=== PATIENT | male | born 1945 | race Caucasian/White ===

== ENCOUNTER 2017-12-11 00:15 | Day surgery (SDC) | payer MEDICARE ==
[~2017-12-11] VITALS: Ht 185.4 cm; Wt 93.0 kg
[~2017-12-11 00:15] MED LIST: FINA5TAB67 PO; LEVO-3 PO; TAMS0.4C70 PO; TRAM-420 PO
[2017-12-11] MEDS ORDERED: fentaNYL CITR 250 MCG/5 ML AMP ONE (11:00)
[2017-12-11] MEDS ORDERED: ROCURONIUM BROM 10 MG/ML 10 ML ONE (11:00)
[2017-12-11] MEDS ORDERED: PROPOFOL EMUL(*) 10MG/ML 20 ML 20 ML ONE (11:00)
[2017-12-11] MEDS ORDERED: SUGAMMADEX SOD 200 MG/2 ML SDV ONE ×2 (11:00→14:50)
[2017-12-11] MEDS ORDERED: LIDOCAINE MPF 1% 5 ML VIAL ONE (11:00)
[2017-12-11] MEDS ORDERED: DEXAMETHASONE SOD 4 MG/ML VIAL ONE (11:00)
[2017-12-11] MEDS ORDERED: ONDANSETRON 4 MG/2 ML VIAL ONE (11:00)
[2017-12-11] MEDS ORDERED: KETAMINE HCL 200 MG/20 ML MDV ONE (11:04)
[2017-12-11 12:17] VITALS: BP 123/82
[2017-12-11 12:26] LABS: PLATELET COUNT, AUTOMATED 399 K/uL (150-450)
[2017-12-11] MEDS ORDERED: FAMOTIDINE 20 MG TAB PO ONE (13:00)
[2017-12-11] MEDS ORDERED: NORMOSOL R SOLN(*) 1000 ML BAG 1,000 ML IV PRN (13:00)
[2017-12-11] MEDS ORDERED: ceFAZolin(*) 2GM/D5W 50ML 50 ML IVPB ONE (13:00)
[2017-12-11] MEDS ORDERED: MIDAZOLAM 2 MG/2 ML VIAL IVP PRN (13:00)
[2017-12-11] MEDS ORDERED: LIDOCAINE/SOD BICARB 8.4% SYR ID ONE (13:00)
[2017-12-11] MEDS ORDERED: LABETALOL HCL 100 MG/20ML VIAL ONE (14:00)
[2017-12-11] MEDS ORDERED: fentaNYL CITR 100 MCG/2 ML AMP ONE ×2 (15:24→15:50)
[2017-12-11] MEDS ORDERED: KETOROLAC 30 MG/ML VIAL ONE (15:26)
--- NOTE | 2017-12-11 15:33 | OPERATIVE REPORT 1 ---
EVENT DATE: December 11, 2017 SURGEON: Deo Garcia MD ANESTHESIOLOGIST: Lars Holbrook MD ANESTHESIA: General endotracheal anesthesia. TECHNICAL SUPPORT DIRECTOR: TROY Noland PREOPERATIVE DIAGNOSIS L2-L3 spinal stenosis. POSTOPERATIVE DIAGNOSIS L2-L3 spinal stenosis. PROCEDURE PERFORMED L2-L3 laminectomy. INTRAVENOUS FLUIDS 1300 mL ESTIMATED BLOOD LOSS 50 mL IMPLANTS USED None. SPECIMENS None. DRAINS None. COMPLICATIONS None. DISPOSITION Post-anesthesia care unit. INDICATIONS FOR SURGERY Mr. Pablo is a 72-year-old male who presented to my clinic with the chief complaint of bilateral lower extremity radiating pain, numbness, and tingling in an L3 distribution. He had failed physical therapy, activity modifications, and medications. In addition to the pain, numbness, and tingling, he noted decreased walking tolerance secondary to a feeling of heaviness and tiredness in his legs. Physical examination was normal with normal strength and sensation , but his MRI showed [id number] bilateral lateral recess stenosis at the L3-L4 levels secondary to broad-based disc bulging, facet hypertrophy, and ligamentum flavum thickening. Secondary to failure of nonsurgical treatment and ongoing pain, Mr. Pablo was offered and elected to undergo L2-L3 laminectomy. Prior to surgery, I explained in detail to the patient the possible risks of surgery. These included bleeding, infection, damage to surrounding structures, nerve root injury, spinal fluid leak, meningitis, persistent and/or worsening pain, need for further surgery, , blindness, sexual dysfunction, autonomic nervous system dysfunction, and other unforeseen medical and surgical complications. An understanding that spinal surgery is more predictive at improving extremity discomfort than axial spine pain was stressed. DESCRIPTION OF PROCEDURE On the day of surgery, the patient was met in the preoperative hold area, and all questions were answered. The operative site was identified and marked by myself. The patient was brought in good condition to the operating room, and after succumbing to anesthesia, was placed in the prone position on a Michele table. The skin was prepped, and a spinal needle was placed on the spinous process of L2. A lateral radiograph was obtained to confirm correct spinal level. The patient was then prepped and draped in the standard sterile orthopedic fashion, and an incision was made over the intended surgical levels. Sharp dissection was carried out down to the posterior elements, and the fascia was incised. Soft tissues were elevated off the posterior elements in a subperiosteal manner. Self-retaining retractor was placed. The entire lamina of L2 was exposed, as was the superior aspect of the lamina of L3. The L2 spinous process was removed with a Leksell rongeur, and the lamina was thinned in the middle again with a Leksell rongeur and a high-speed ramon. The canal was entered by using a Rico curette to undermine the superior insertion of the ligamentum flavum on the inferior aspect of the L2 lamina. A Braxton elevator was then used to separate the dura from any surrounding bony or soft tissue adhesions. A Kerrison 4 was used to perform the midline decompression. The Braxton elevator was again used to ensure that there was no adhesion between the dura and the soft tissues and bone in the lateral recesses. Bilateral lateral recess decompressions were performed using a combination of 3.0 and 4.0 Kerrison rongeurs. At the conclusion of the decompression, the traversing L3 root was freely mobile, and a Myers probe was used to check the lateral recesses as well as the L3 foramen for complete decompression. The decompression was found to be excellent. Meticulous hemostasis was obtained. The wound was irrigated with copious sterile saline solution. The wound was then closed in layers using interrupted sutures for the deep fascia, interrupted sutures for the subcutaneous tissue, and then a running subcuticular skin stitch. Sponge and needle counts were correct times two. POSTOPERATIVE CARE PLAN Mr. Pablo will likely be discharged home day of surgery. He will follow up with me in two weeks' time for wound check and examination. JAY
[2017-12-11] MEDS ORDERED: PROMETHAZINE 25 MG/ML 1 ML AMP ONE (15:39)
[2017-12-11] MEDS ORDERED: APAP/HYDROCODONE 325/5 TAB ONE (16:10)
[2017-12-11 16:30] VITALS: BP 127/79
[2017-12-11 16:42] VITALS: BP 118/73
[2017-12-11 16:44] VITALS: BP 103/62
--- NOTE | 2017-12-12 07:03 | RADIOLOGY IMAGING REPORT ---
FACILITY: [facility] - [place], [place] PATIENT NAME: Oneal Pablo : 1945 MR: [id number] V: [id number] EXAM DATE: ORDERING PHYSICIAN: LISA CARMICHAEL TECHNOLOGIST: Location: [facility] - [place] Patient: Oneal Pablo : 1945 Visit/Account:[id number] Date of Sevice: 12/11/2017 LUMBAR SPINE 1 VIEW HISTORY: L2-3 disc herniation. COMPARISON: Lumbar spine MR 10/30/2017. Prior lumbar spine x-rays 10/17/2017. TECHNIQUE: Crosstable lateral view of the lumbar spine. FINDINGS: There is a surgical instrument/needle overlying the spinous process of L2, at the level of the L2-3 disc interspace. There is 4 mm retrolisthesis of L2 compared to L3. Vertebral body heights a re maintained. IMPRESSION: 1. Surgical instrument/needle overlies the L2 spinous process at the level of the L2-3 disc space. Report Dictated By: Gifty Pierce at 12/12/2017 6:57 AM Report E-Signed By: Gifty Pierce at 12/12/2017 7:00 AM WSN:[id number]
== END 2017-12-11 16:30 | disposition home or self-care (01) ==
LOC: OR 00:15
PROVIDERS: ATTEND Orthopaedic Surgery
DX: M48.061 Spinal stenosis, lumbar region without neurogenic claudication (principal); E03.9 Hypothyroidism, unspecified
CPT/HCPCS: 36415; 63030; 72020; 85025; A9270; J1100; J1885; J2001; J2405; J2704; J3010; J3490; J0690

== ENCOUNTER → 2018-05-18 | Outpatient (CLI) | payer MEDICARE ==
--- NOTE | 2018-05-18 14:23 | RADIOLOGY IMAGING REPORT ---
[place] [facility] [place]: Oneal Pablo : 1945 MR: [id number] V: [id number] EXAM DATE: ORDERING PHYSICIAN: BARBARA SHAFER TECHNOLOGIST: Location: [facility] Patient: Oneal Pablo : 1945 Visit/Account:[id number] Date of Sevice: 05/18/2018 EXAMINATION: Right Lower Extremity Venous Ultrasound HISTORY: Right calf pain. TECHNIQUE: Ultrasound evaluation of the right lower extremity veins was performed with color and spe ctral Doppler and compression views. COMPARISON: None. FINDINGS: The right common femoral, femoral, proximal deep femoral, popliteal, and segmentally visualized deep calf veins are patent and compressible, without evidence of intraluminal thrombus. The visualized upper greater saphenous vein is patent. There is a fluid collection along the popliteal fossa which tracks inferiorly along the soft tissues of the right calf, with complex internal fluid. Overall this collection measures 2.4 x 5.0 cm in mayer sverse diameter extending craniocaudally over a length of up to 17 cm. IMPRESSION: 1. No evidence of DVT in the right leg. 2. Complex collection in the soft tissues of the popliteal fossa and tracking inferiorly along the ri ght calf, possibly related to a ruptured Carpenter's cyst. Report Dictated By: Jeremias Brumfield MD at 05/18/2018 2:08 PM Report E-Signed By: Jeremias Brumfield MD at 05/18/2018 2:19 PM WSN:[id number]
== END ==
LOC: US 12:52
PROVIDERS: ATTEND Orthopaedic Surgery
DX: M79.604 Pain in right leg (principal); R22.41 Localized swelling, mass and lump, right lower limb

== ENCOUNTER → 2018-08-08 | Outpatient (CLI) | payer MEDICARE ==
[2018-08-08 08:42] LABS: PLATELET COUNT, AUTOMATED 495 K/uL (150-450)
--- NOTE | 2018-08-08 08:43 | EKG ---
FACILITY: [facility] PATIENT NAME: HARJIT RAMIREZ : [id number] MR: [id number] V: [id number] EXAM DATE: ORDERING PHYSICIAN: DIAMANTE LOMAS TECHNOLOGIST: Test Reason : Pre-op Blood Pressure : / mmHG Vent. Rate : 081 BPM Atrial Rate : 081 BPM P-R Int : 148 ms QRS Dur : 078 ms QT Int : 372 ms P-R-T Axes : 067 -01 035 degrees QTc Int : 432 ms Normal sinus rhythm R wave progression consistent with an old ant/sep OH vs lead placement When compared with ECG of 27-APR-2017 11:02, Relatively unchanged Confirmed by JOSIAH ONTIVEROS ([id number]) on 08/08/2018 10:56:29 AM Referred By: Confirmed By:JOSIAH ONTIVEROS
== END ==
LOC: LAB 08:13
PROVIDERS: ATTEND Orthopaedic Surgery
DX: Z01.812 Encounter for preprocedural laboratory examination (principal); Z01.810 Encounter for preprocedural cardiovascular examination; E03.9 Hypothyroidism, unspecified; N40.0 Benign prostatic hyperplasia without lower urinary tract symptoms; M17.11 Unilateral primary osteoarthritis, right knee; F17.220 Nicotine dependence, chewing tobacco, uncomplicated
CPT/HCPCS: 36415; 81001; 82040; 82247; 82310; 82374; 82435; 82565; 82947; 84075; 84132; 84155; 84295; 84450; 84460; 84520; 85025; 93005

== ENCOUNTER 2018-09-04 01:12 | Observation (INO) | payer MEDICARE ==
[2018-09-03 14:22] LABS: INR 0.98
[~2018-09-04] VITALS: Ht 185.4 cm; Wt 88.5 kg
[2018-09-04] VITALS (17 sets, daily range): BP systolic 99–124; BP diastolic 64–77
[2018-09-04] MEDS ORDERED: NORMOSOL R SOLN(*) 1000 ML BAG 1,000 ML IV PRN (07:45)
[2018-09-04] MEDS ORDERED: ceFAZolin(*) 2GM/D5W 50ML 50 ML IVPB ONE (07:45)
[2018-09-04] MEDS ORDERED: LIDOCAINE/SOD BICARB 8.4% SYR ID ONE (07:45)
[2018-09-04] MEDS ORDERED: MIDAZOLAM 2 MG/2 ML VIAL IVP PRN (07:45)
[2018-09-04] MEDS ORDERED: ROPIVACAINE/EPI/CLONIDINE/KET 50 ML SYRINGE INJ ONE (07:45)
[2018-09-04] MEDS ORDERED: BACITRACIN 50000 UNIT/VIAL 100,000 UNIT in NS 0.9% 3000 ML IRRIGATION BAG 3,000 ML IR ONE (07:45)
[2018-09-04] MEDS ORDERED: TRANEXAMIC AC 1000 MG/10ML SDV 1,000 MG in DEXTROSE 5% 50 ML BAG 50 ML IV ONE (07:45)
[2018-09-04] MEDS ORDERED: PREGABALIN 75 MG CAPSULE PO ONE (07:45)
[2018-09-04] MEDS ORDERED: ACETAMINOPHEN 500 MG TAB PO ONE (07:45)
[2018-09-04] MEDS ORDERED: FAMOTIDINE 20 MG TAB PO ONE (07:45)
[2018-09-04] MEDS ORDERED: CELECOXIB 200 MG CAP PO ONE (07:45)
[2018-09-04] MEDS ORDERED: fentaNYL CITR 100 MCG/2 ML AMP ONE (08:18)
[2018-09-04] MEDS ORDERED: ONDANSETRON 4 MG/2 ML VIAL ONE (08:18)
[2018-09-04] MEDS ORDERED: PROPOFOL EMUL(*) 10MG/ML 20 ML 20 ML ONE (08:18)
[2018-09-04] MEDS ORDERED: DEXAMETHASONE SOD 4 MG/ML VIAL ONE (08:18)
[2018-09-04] MEDS ORDERED: LIDOCAINE MPF 1% 5 ML VIAL ONE (08:18)
[2018-09-04] MEDS ORDERED: KETAMINE HCL 200 MG/20 ML MDV ONE (08:22)
[2018-09-04] MEDS ORDERED: diphenhydrAMINE 25 MG CAP PO PRN (11:00)
[2018-09-04] MEDS ORDERED: ZOLPIDEM TARTRATE 5 MG TAB PO PRN (11:00)
[2018-09-04] MEDS ORDERED: PROMETHAZINE 25 MG/ML 1 ML AMP IVP PRN (11:00)
[2018-09-04] MEDS ORDERED: LR 1000 ML BAG 1000 ML IV PRN (11:00)
[2018-09-04] MEDS ORDERED: diphenhydrAMINE 50 MG/ML VIAL IVP PRN (11:00)
[2018-09-04] MEDS ORDERED: BISACODYL 10 MG SUPP PR PRN (11:00)
[2018-09-04] MEDS ORDERED: MAGNESIUM HYDROXIDE* 30ML UDCP PO PRN (11:00)
[2018-09-04] MEDS ORDERED: ONDANSETRON 4 MG/2 ML VIAL IVP PRN (11:00)
[2018-09-04] MEDS ORDERED: MAGNESIUM CITRATE 300 ML BTL PO PRN (11:00)
[2018-09-04] MEDS ORDERED: FLUSH 10 ML SYR IVP PRN (11:00)
[2018-09-04] MEDS ORDERED: HYDROmorphone HCL 2 MG/ML SDV IVP PRN (11:00)
--- NOTE | 2018-09-04 11:02 | OPERATIVE REPORT 1 ---
EVENT DATE: September 04, 2018 SURGEON: Zaki Lockhart MD ANESTHESIOLOGIST: Lars Holbrook MD ANESTHESIA: General plus spinal. JUICE MIXER: Guilherme Garcia PA-C PREOPERATIVE DIAGNOSIS Right medial compartment arthritis. POSTOPERATIVE DIAGNOSIS Right medial compartment arthritis. PROCEDURE PERFORMED Right unicompartmental knee arthroplasty on the medial side. FINDINGS The patient had a significant amount of arthritic changes on the medial side but no other major problems associated with the joint. ESTIMATED BLOOD LOSS Minimal. DRAINS None. COMPLICATIONS None. TOURNIQUET TIME 70 minutes. IMPLANTS USED [place] unicompartmental medial knee replacement with a C tibia, 3 poly and large femoral component. SPECIMENS None. INDICATIONS AND HISTORY This patient is a 73-year-old male who presented to my clinic for evaluation of right knee pain and irritation going on for some time. He continues to have pain and problems associated with the knee despite conservative management so he wanted to go ahead with a unicompartmental arthroplasty. We went over the risks and benefits associated with this. We talked about potential scopes and injections. Instead of that, he said he wanted to kind of be done with it so he wanted to go ahead with the unicompartmental knee arthroplasty so the risks and benefits were discussed with the patient and informed consent was obtained. He understands it may have to be converted to a total knee at a later time. DESCRIPTION OF PROCEDURE The patient was brought into the operating room. He and the procedure were both verified. He was placed supine on the operating table. He was then induced intubated and the right lower extremity was prepped and draped in the usual fashion and a time-out was observed, verifying the correct patient and procedure. After exsanguinating the limb and inflating the tourniquet, I then made an incision along the anterior aspect of the knee just on the medial side. It was taken through the skin and subcutaneous tissue and then I was able to go ahead with removal of the prepatellar bursa. I was then able to do a parapatellar approach by cutting along the patella and then going into the medial compartment. I then removed the patellar fat pad and also the front part of the medial meniscus and also I removed a little bit of the anterior aspect of the MCL just to release this area to gain exposure. Once I did this, I then measured the femoral component and this measured to a large so this is the component chosen. We then kept this guide in and then used the extramedullary guide in order to line up the tibia itself. I then put in the tibial cutting guide and pinned it in place and then cut without any major difficulty with the vertical cut first and the horizontal cut second. Once I did this, I was able to remove the wafer and then size it to right in between a C and a D. We removed some posterior osteophytes and this looked significantly better through this area and I removed the rest of the posterior meniscus. I then was able to put in the intramedullary guide through the femoral part. I then put in the 4 cutting guide for the distal femur. This was then followed by pinning in place and then cut and drilling the two holes, both anteriorly and through the mid portion of the femur. I then put in the 0 spigot and reamed over the top of the spigot without any difficulty. This was then followed by placement of the femoral trial guide. I then put in the tibial tray and then trialed the spacers and was found to have good spacing on the flexion but the extension gap was too tight x2 so, therefore, we then removed all the spacing and the instrumentation and then put in the #2 spigot, taking 2 off of this and then reaming up on this area. I then trialed the components again and had excellent stability associated with a 3 spacer so, therefore, this was the final spacing chosen. I then was able to turn attention to the femur again and remove the posterior osteophytes with the secondary cutting guide and then ream up over the top. I then turned attention to the proximal tibia, where I was able to then use the trial for the C, as the C looked better than the D, in order to use the toothbrush reamer in order to cut out the groove followed by the canal clearer and then I was able to put in the C without any major difficulty. We then trialed again and made sure there were no signs of problems. I then was able to determine the final components to be a large and then a C. We then cemented those in place without any difficulty and removed some of the posterior aspects and removed any loose cement that was gathered anywhere. I then put in the 4 spacer in order to get good pressure on the cement. Once I removed the 4 spacer, I then put in the 3 trial once again. This had excellent fixation so, therefore, we then took that out and put in the final 3 mm poly without any major difficulty. I was able to flex and extend the knee without any difficulty. We had varus and valgus stability so, therefore, I was able to flex and extend it without any issues so we left this in place, irrigated with copious amounts of saline, which we had throughout the case, injected the joint cocktail and then was able to close the medial parapatellar approach with an 0 Quill. This was then followed by 2-0 Vicryl in the little bit of fat layer and then a 2-0 Stratafix in the subcutaneous layer and subcuticular 4-0 running Monocryl with a bio-occlusive dressing over the top. The wound was then dressed with gauze, 4x4's and a large wrap from the foot all the way to the thigh. The tourniquet was let down just after 70 minutes. The patient was awakened, extubated and transferred to PACU in stable condition, where he will be admitted overnight. JAY
--- NOTE | 2018-09-04 11:52 | RADIOLOGY IMAGING REPORT ---
FACILITY: [facility] - [place] PATIENT NAME: Oneal Pablo : 1945 MR: [id number] V: [id number] EXAM DATE: ORDERING PHYSICIAN: DIAMANTE LOMAS TECHNOLOGIST: Location: [facility] - [place] Patient: Oneal Pablo : 1945 Visit/Account:[id number] Date of Sevice: 09/04/2018 KNEE LIMITED RIGHT HISTORY: S/P UNICOMPARTMENT OF THE KNEE REPLACED. CHECK PLACEMEN Additional history: None COMPARISON: Comparison made to preoperative exam 05/18/2018. FINDINGS: Patient status post arthroplasty of the medial compartment of the right knee with femoral and tibial component. Alignment unremarkable. Air in the joint is iatrogenic from recent surgery. IMPRESSION: Unicompartment right knee arthroplasty unremarkable in appearance. Report Dictated By: Gary Wood MD at 09/04/2018 11:44 AM Report E-Signed By: Gary Wood MD at 09/04/2018 11:47 AM WSN:[id number]
--- NOTE | 2018-09-04 12:14 | Hospitalist Consultation ---
History of Present Illness Requesting Physician Dr. Lockhart Reason for Consult Medical Management Chief Complaint s/p right knee unicompartmental replacement History of Present Illness He was admitted s/p right knee unicompartmental replacement. It is reported the surgery went well and without complication. History Problems: (1) Hypothyroidism Status: Chronic (2) BPH (benign prostatic hyperplasia) Status: Chronic Home Meds Reported Medications Finasteride (FINASTERIDE) 5 Mg Tablet, 5 MG PO QDAY 12/04/17 Tamsulosin Hcl (TAMSULOSIN HCL) 0.4 Mg Cap.er.24h, 0.4 MG PO QDAY, CAP 12/04/17 Levothyroxine Sodium (LEVOTHYROXINE SODIUM) 100 Mcg Tablet, 100 MCG PO QDAY, TAB 12/04/17 Discontinued Reported Medications Tramadol Hcl (TRAMADOL HCL) 50 Mg Tablet, 1 TAB PO TID, TAB 12/04/17 Allergies: Coded Allergies: No Known Drug Allergies (Unverified , 12/04/17) Patient History: FH: DE (myocardial infarction) FATHER Hx Smoking: No (1 CAN Q 4 DAYS) Caffeine Intake: Coffee Caffeine/Cups Per Day: 1-2 CPD Hx Alcohol Use: No Hx Substance Use Disorder: No Social Drug Use: Never Review of Systems All Systems Reviewed/Normal: Yes, Except as Noted Exam Vital Signs Vital Signs Date Time Temp Pulse Resp B/P (MAP) Pulse Ox O2 Delivery O2 Flow Rate FiO2 09/04/18 11:42 97.7 86 20 115/74 (88) 96 Nasal Cannula 2.0 General Appearance: Alert, Awake, No Acute Distress, Afebrile Neuro: No Gross deficits Cardiovascular: Regular Rate and Rhythm Respiratory: No Respiratory Distress, Clear to Auscultation GI: Abd Soft and Non-Tender Psych: Alert & Oriented X3, Appropriate Mood & Affect Assessment and Plan Problems: (1) S/P right unicompartmental knee replacement Status: Acute Assessment & Plan: He will be placed on Aspirin for DVT prophylaxis. He has no history of DVT or PE. (2) Hypothyroidism Status: Chronic Assessment & Plan: He is on chronic treatment with Levothyroxine. He requests he get medication at midnight. (3) BPH (benign prostatic hyperplasia) Status: Chronic Assessment & Plan: He is on chronic treatment with Flomax and Finasteride. Venous Thromboembolism Antithrombotics Is Pt On Any Antithrombotics?: No Exam Sepsis Risk: No Definite Risk KYM MOSQUEDAP Sep 04, 2018 12:14
--- NOTE | 2018-09-04 14:46 | NUR ---
Physical Therapy Impression PT eval complete. Pt completed bed mobility with SBA. CGA for STS transfer and side step to HOB with RW. VSS throughout session. Pt would like to d/c with OP PT services Physical Therapy Goals 1: Pt to complete bed mobility with Yasmin 2: Pt to complete transfers with SBA and RW 3: Pt to complete ambulation x150' with RW and SBA 4: Pt to asc/desc 3 stairs without railing and crutches with CGA Patient's Goals
[2018-09-04] MEDS: TAMSULOSIN HCL 0.4 MG CAP PO SCH (16:22)
[2018-09-04] MEDS: ceFAZolin(*) 2GM/D5W 50ML 50 ML IVPB SCH (16:39)
[2018-09-04] MEDS ORDERED: FINASTERIDE 5 MG TAB PO SCH (21:00)
[2018-09-04] MEDS ORDERED: ASPIRIN 325 MG TAB PO SCH (21:00)
[2018-09-05] MEDS: ceFAZolin(*) 2GM/D5W 50ML 50 ML IVPB SCH ×2 (01:32→08:52)
[2018-09-05 01:34] VITALS: BP 116/76
[2018-09-05] MEDS ORDERED: LEVOTHYROXINE SOD 0.1 MG TAB PO SCH ×3 (06:00)
[2018-09-05 06:50] VITALS: BP 112/62
[2018-09-05] MEDS ORDERED: OXYC-373 PO (07:26)
[2018-09-05] MEDS: TAMSULOSIN HCL 0.4 MG CAP PO SCH (08:51)
[2018-09-05] MEDS ORDERED: ASPI-757 PO (09:41)
--- NOTE | 2018-09-05 10:40 | NUR ---
Physical Therapy Impression Pt tolerated ambulation in hallway with FWW and up/down platform step with crutches only. Pt then completed up/down 20 steps with rail and SBA/Modified indep per his request to be able to ensure access of other areas of home. Pt educated on use of leg account underwriter to improve indep with bed mobility and counseled regarding conservative pain management techniques to manage edema as well. Pt is scheduled tomorrow with out pt PT. Physical Therapy Goals 1: Pt to complete bed mobility with Yasmin 2: Pt to complete transfers with SBA and RW 3: Pt to complete ambulation x150' with RW and SBA 4: Pt to asc/desc 3 stairs without railing and crutches with CGA Patient's Goals
--- NOTE | 2018-09-05 11:23 | Hospitalist Progress Note ---
Subjective Progress Notes Subjective He was admitted s/p knee surgery. He has no complaints this morning. He had no acute events overnight. Patient Complains of: Cardiovascular: No: Chest Pain Respiratory: No: Shortness of Breath Physical Exam Vital Signs Date Time Temp Pulse Resp B/P (MAP) Pulse Ox O2 Delivery O2 Flow Rate FiO2 09/05/18 07:29 92 09/05/18 06:50 98.0 63 20 112/62 (79) Nasal Cannula 09/05/18 01:34 0.5 Intake and Output 09/05/18 06:59 Intake Total 2260 ml Output Total 220 ml Balance 2040 ml Intake Oral 340 ml IV Total 1920 ml Output Urine Total 220 ml # Voids 4 General Appearance: Alert, Awake, No Acute Distress, Afebrile Neuro: No Gross deficits Cardiovascular: Regular Rate and Rhythm Respiratory: No Respiratory Distress, Clear to Auscultation GI: Soft and Non-Tender Psych: Alert & Oriented X3, Appropriate Mood & Affect Result Diagram: 09/05/18 0456 Assessment and Plan Problems: (1) S/P right unicompartmental knee replacement Status: Acute Assessment & Plan: He will be placed on Aspirin for DVT prophylaxis. He has no history of DVT or PE. (2) Hypothyroidism Status: Chronic Assessment & Plan: He is on chronic treatment with Levothyroxine. He requests he get medication at midnight. (3) BPH (benign prostatic hyperplasia) Status: Chronic Assessment & Plan: He is on chronic treatment with Flomax and Finasteride. Exam Sepsis Risk: No Definite Risk KYM MOSQUEDA Sep 05, 2018 11:23
== END 2018-09-05 08:21 | disposition home or self-care (01) ==
LOC: OR 01:12 → MED 11:39
PROVIDERS: ADMIT Orthopaedic Surgery; ATTEND Orthopaedic Surgery
DX: M17.11 Unilateral primary osteoarthritis, right knee (principal); E03.9 Hypothyroidism, unspecified; N40.0 Benign prostatic hyperplasia without lower urinary tract symptoms
CPT/HCPCS: 27446; 36415; 73560; 85014; 85018; 85610; 86850; 86900; 86901; 97110; 97116; 97161; 97530; A9270; C1713; C1776; G0378; J1100; J2001; J2250; J2405; J2704; J3010; J3490; J7060; J0690

== ENCOUNTER → 2018-10-25 | Outpatient (CLI) | payer MEDICARE ==
[~2018-10-25] MED LIST changes: +ASPI-757 PO; +OXYC-373 PO
[2018-10-25 10:15] LABS: PLATELET COUNT, AUTOMATED 408 K/uL (150-450)
== END ==
LOC: LAB 09:49
PROVIDERS: ATTEND Orthopaedic Surgery
DX: Z01.812 Encounter for preprocedural laboratory examination (principal); M19.011 Primary osteoarthritis, right shoulder; N40.0 Benign prostatic hyperplasia without lower urinary tract symptoms; E07.9 Disorder of thyroid, unspecified; Z72.0 Tobacco use
CPT/HCPCS: 36415; 81001; 82040; 82247; 82310; 82374; 82435; 82565; 82947; 84075; 84132; 84155; 84295; 84443; 84450; 84460; 84520; 85025

== ENCOUNTER 2018-11-13 01:12 | Inpatient (IN) | payer MEDICARE ==
[2018-11-12 15:57] LABS: INR 0.92
[2018-11-13] VITALS (21 sets, daily range): BP systolic 94–134; BP diastolic 59–83
[~2018-11-13] VITALS: Ht 185.4 cm; Wt 83.9 kg
[2018-11-13] MEDS ORDERED: LIDO/EPI 2% MPF 1:200,000 20ML ONE (10:01)
[2018-11-13] MEDS ORDERED: ROPIVACAINE 0.2% 20 ML VIAL ONE (10:01)
[2018-11-13] MEDS ORDERED: LIDOCAINE/SOD BICARB 8.4% SYR ID ONE (12:30)
[2018-11-13] MEDS ORDERED: CELECOXIB 200 MG CAP PO ONE (12:30)
[2018-11-13] MEDS ORDERED: BACITRACIN 50000 UNIT/VIAL 100,000 UNIT in NS 0.9% 3000 ML IRRIGATION BAG 3,000 ML IR ONE (12:30)
[2018-11-13] MEDS ORDERED: ROPIVACAINE/EPI/CLONIDINE/KET 50 ML SYRINGE INJ ONE (12:30)
[2018-11-13] MEDS ORDERED: ceFAZolin(*) 2GM/D5W 50ML 50 ML IVPB ONE (12:30)
[2018-11-13] MEDS ORDERED: MIDAZOLAM 2 MG/2 ML VIAL IVP PRN (12:30)
[2018-11-13] MEDS ORDERED: NORMOSOL R SOLN(*) 1000 ML BAG 1,000 ML IV PRN (12:30)
[2018-11-13] MEDS ORDERED: ACETAMINOPHEN 500 MG TAB PO ONE (12:30)
[2018-11-13] MEDS ORDERED: PREGABALIN 75 MG CAPSULE PO ONE (12:30)
[2018-11-13] MEDS ORDERED: fentaNYL CITR 100 MCG/2 ML AMP ONE ×2 (13:12→15:18)
[2018-11-13] MEDS ORDERED: FAMOTIDINE 20 MG TAB PO ONE (13:30)
[2018-11-13] MEDS ORDERED: NS 0.9% IRRIGATION 1000ML PLCT IR ONE (14:25)
[2018-11-13] MEDS ORDERED: DEXAMETHASONE SOD PHOS 10MG/ML ONE (14:37)
[2018-11-13] MEDS ORDERED: ROCURONIUM BROM 10 MG/ML 10 ML ONE (14:37)
[2018-11-13] MEDS ORDERED: ONDANSETRON 4 MG/2 ML VIAL ONE (14:37)
[2018-11-13] MEDS ORDERED: PROPOFOL EMUL(*) 10MG/ML 20 ML 20 ML ONE (14:37)
[2018-11-13] MEDS ORDERED: SUGAMMADEX SOD 500 MG/5 ML SDV ONE (14:37)
[2018-11-13] MEDS ORDERED: MAGNESIUM CITRATE 300 ML BTL PO PRN (15:20)
[2018-11-13] MEDS ORDERED: PROMETHAZINE 25 MG/ML 1 ML AMP IVP PRN (15:20)
[2018-11-13] MEDS ORDERED: BISACODYL 10 MG SUPP PR PRN (15:20)
[2018-11-13] MEDS ORDERED: ZOLPIDEM TARTRATE 5 MG TAB PO PRN (15:20)
[2018-11-13] MEDS ORDERED: ONDANSETRON 4 MG/2 ML VIAL IVP PRN (15:20)
[2018-11-13] MEDS ORDERED: HYDROmorphone HCL 2 MG/ML SDV IVP PRN (15:20)
[2018-11-13] MEDS ORDERED: diphenhydrAMINE 50 MG/ML VIAL IVP PRN (15:20)
[2018-11-13] MEDS ORDERED: LR 1000 ML BAG 1000 ML IV PRN (15:20)
[2018-11-13] MEDS ORDERED: diphenhydrAMINE 25 MG CAP PO PRN (15:20)
[2018-11-13] MEDS ORDERED: MAGNESIUM HYDROXIDE* 30ML UDCP PO PRN (15:20)
[2018-11-13] MEDS ORDERED: FLUSH 10 ML SYR IVP PRN (15:20)
[2018-11-13] MEDS: fentaNYL CITR 100 MCG/2 ML AMP ONE ×2 (15:22→15:45)
--- NOTE | 2018-11-13 16:10 | OPERATIVE REPORT 1 ---
EVENT DATE: November 13, 2018 SURGEON: Zaki Lockhart MD ANESTHESIOLOGIST: Jean Villa MD ANESTHESIA: General LMA. SALVAGE MEND WORKER: Guilherme Garcia PA-C PREOPERATIVE DIAGNOSIS Right shoulder osteoarthritis. POSTOPERATIVE DIAGNOSIS Right shoulder osteoarthritis. PROCEDURE PERFORMED Right total shoulder arthroplasty. FINDINGS The patient had significant arthritic changes associated with the shoulder, but was amenable for a total shoulder replacement. ESTIMATED BLOOD LOSS About 150 mL. DRAINS None. COMPLICATIONS None. TOURNIQUET TIME Not applicable. IMPLANTS USED DePuy 12 Global Unite stem with a 12 Unite body, a 52 x 18 standard head, and a 52 [place] Peg glenoid. SPECIMENS None. INDICATIONS AND HISTORY This patient is a 73-year-old male who presented to my clinic for evaluation of right shoulder pain and irritation associated with arthritic changes. We talked about the implications of this as well as treatment options. When he failed all conservative management, he wanted to go ahead with a right total shoulder arthroplasty to try and get some relief out of it, and so we went over the risks and benefits associated with this, and informed consent was obtained at the last clinic visit. He understood there was no guarantee that it would make him better. DESCRIPTION OF PROCEDURE As the patient was brought into the operating room, he and the procedure were both verified. He was placed supine on the operating table and induced and intubated by Anesthesia. The patient was then put in a beach chair position, and the right arm was prepped and draped in the usual fashion. A timeout was observed verifying the correct patient and procedure. The standard incision was made over the deltopectoral approach. It was taken through the skin and subcutaneous tissue after I anesthetized the skin with lidocaine with epinephrine. I then was able to find the deltopectoral approach and the cephalic vein and moved the cephalic vein to the lateral side, and then I was able to go into the clavipectoral fascia. Once I got into the clavipectoral fascia, I identified the bicipital tendon and then was able to tenodese the bicipital tendon to the pectoralis in this area. I then was able to cut the biceps without any difficulty. I then removed the subscapularis with peeling it back with electrocautery, making sure to tag it for later repair. Once I removed the entirety of the subscapularis, I was then able to dislocate the shoulder and then externally rotate it in the extended position. Once I did this, I then drilled a hole in the superior aspect of the humeral head. I was then able to put a curette in this and then commence the reaming from the dinCloud system. I started with a [address] the way up to a 12 reamer, and that seemed to be the best fit associated with it, and so therefore, we put the cutting block on this and then labeled it for cut. I then cut the humeral head without any difficulty and then removed the bone spurs and osteophytes off the inferior portion and the posterior and anterior portion of the bone. I then put a small metal plate on it and then retracted the humerus posteriorly in order to gain access to the glenoid. Once on the glenoid, I was then able to gain good access and remove the labrum and remove the rest of the biceps tendon up in this area. Once I removed the labrum, I then labeled the glenoid from an anterior to posterior aspect and also a superior to inferior aspect and then drilled a central missile control pilot hole straight in the middle of this. This measured a 52, and so therefore, we then commence reaming with a 52 mm reamer. We did have a piece of the anterior inferior glenoid come off, but it really was not a structural aspect, and so therefore, we just left well enough alone as we had enough to secure the [place] Peg in place of the actual glenoid. I was then able to irrigate with copious amounts of saline, and once I had reamed in an adequate position, I then put in the gold guide and then drilled the three derotational plug holes. Once this was done, I put in the trial. It fit well, and so therefore, we then mixed the cement and put in a 52 [place] Peg glenoid with bone graft on the backside and cemented it in place and held it in place until the cement had hardened. Once I made sure that that was down, I then irrigated with the Irrisept and copious amounts of saline with pulsatile lavage. I then turned attention back to the humerus where I was able to put in the #12 Brosteotome in order to impact the bone graft in this area. I then put in the 12 stem and then 52 x 18 head on the top part of the humeral stem. Once everything was in good position, I had good tension associated with it. It moved well, and so therefore, since there were no signs of problems, and it had good tension associated with it, this was the final prosthesis chosen. I then removed the implant, bone grafted the humeral area in order to make it amenable for the final stem. I then placed six drill holes through the lesser tuberosity and passed six Ethibond sutures through this area. We then used those for later subscapularis repair. I then put in the final prosthesis, reduced it, put it through a range of motion, and found it to have excellent tension throughout. So therefore, I then irrigated again with copious amounts of saline using pulsatile lavage and then ultimately the Irrisept, which we left in place for a minute or two before draining out. I then repaired the subscapularis using those six Ethibonds I had passed previously throughout the subscapularis. This then closed the subscapularis down very well. I cut the sutures, put it through a range of motion again, and saw no signs of problems. I irrigated again and then closed the deltopectoral interval again with an 0 Stratafix. This was then followed by a 2-0 Stratafix in the subcutaneous tissue and a subcuticular running 4-0 Monocryl. The wound was then anesthetized with ropivacaine after we had done a joint cocktail down deep, and then we dressed it with Steri-Strips, gauze 4 x 4's, and a soft dressing. The patient was put in a sling, awakened, extubated, and transferred to PACU in stable condition where He will be admitted overnight. JAY
--- NOTE | 2018-11-13 16:38 | Hospitalist Consultation ---
History of Present Illness Requesting Physician Dr. Lockhart Reason for Consult Medical Management Chief Complaint s/p right shoulder replacement History of Present Illness He was admitted s/p right shoulder replacement. It is reported the surgery went well and without complication. History Problems: (1) Hypothyroidism Status: Chronic (2) BPH (benign prostatic hyperplasia) Status: Chronic Home Meds Active Scripts Aspirin (ASPIRIN) 325 Mg Tablet, 325 MG PO QHS, #30 TAB Prov:KYM MOSQUEDA OFFSET PROOF PRESS OPERATOR 09/05/18 Reported Medications Finasteride (FINASTERIDE) 5 Mg Tablet, 5 MG PO QDAY 12/04/17 Tamsulosin Hcl (TAMSULOSIN HCL) 0.4 Mg Cap.er.24h, 0.4 MG PO QDAY, CAP 12/04/17 Levothyroxine Sodium (LEVOTHYROXINE SODIUM) 100 Mcg Tablet, 100 MCG PO QDAY, TAB 12/04/17 Discontinued Reported Medications Oxycodone Hcl/Acetaminophen (OXYCODONE-ACETAMINOPHEN 5-325) 1 Each Tablet, 1 EACH PO Q4H PRN for PAIN, #40 TAB 09/05/18 Allergies: Coded Allergies: No Known Drug Allergies (Unverified , 12/04/17) Patient History: FH: [place] (myocardial infarction) FATHER Hx Smoking: No (1 CAN Q 4 DAYS) Caffeine Intake: Coffee Caffeine/Cups Per Day: 1-2 CPD Hx Alcohol Use: No Hx Substance Use Disorder: No Social Drug Use: Never Review of Systems All Systems Reviewed/Normal: Yes, Except as Noted Exam Vital Signs Vital Signs Date Time Temp Pulse Resp B/P (MAP) Pulse Ox O2 Delivery O2 Flow Rate FiO2 11/13/18 16:15 88 16 96 11/13/18 11:50 97.2 133/80 (97) Room Air General Appearance: Alert, Awake, No Acute Distress, Afebrile Neuro: No Gross deficits Cardiovascular: Regular Rate and Rhythm Respiratory: No Respiratory Distress, Clear to Auscultation Psych: Alert & Oriented X3, Appropriate Mood & Affect Assessment and Plan Problems: (1) Status post replacement of right shoulder joint Status: Acute Assessment & Plan: Followed by Dr. Lockhart. (2) Hypothyroidism Status: Chronic Assessment & Plan: Continue chronic levothyroxine. (3) BPH (benign prostatic hyperplasia) Status: Chronic Assessment & Plan: Continue chronic Flomax and Finasteride. Venous Thromboembolism Antithrombotics Is Pt On Any Antithrombotics?: No KYM MOSQUEDA OFFSET PROOF PRESS OPERATOR November 13, 2018 16:38
--- NOTE | 2018-11-13 17:05 | RADIOLOGY IMAGING REPORT ---
FACILITY: [facility] PATIENT NAME: Oneal Pablo : 1945 MR: [id number] V: [id number] EXAM DATE: ORDERING PHYSICIAN: DIAMANTE LOMAS TECHNOLOGIST: Location: [facility] [place] Patient: Oneal Pablo : 1945 Visit/Account:[id number] Date of Sevice: 11/13/2018 SHOULDER 1 VIEW RIGHT HISTORY: post right total shoulder arthroplasty Single AP film. Study demonstrates a right shoulder arthroplasty. There is good positioning of the femoral stem with in the proximal humerus. The humeral head component is in the mid superior aspect of the adjacent sc lerotic degenerative glenoid. 8 mm interval between the humeral head in the acromion. DJD changes o f a mild degree of the AC joint. IMPRESSION: 1. Status post right shoulder arthroplasty. Report Dictated By: Ameya Ferreira MD at 11/13/2018 4:57 PM Report E-Signed By: Ameya Ferreira MD at 11/13/2018 5:00 PM WSN:[email or web address]
[2018-11-13] MEDS ORDERED: NICOTINE POLACRILEX 2 MG GUM PO PRN (17:10)
[2018-11-13] MEDS: oxyCODON/ACET (*)5/325MG (CII) 1 TAB TAB PO PRN ×2 (17:26→22:03)
[2018-11-13] MEDS ORDERED: FINASTERIDE 5 MG TAB PO SCH (21:00)
[2018-11-13] MEDS: ceFAZolin(*) 2GM/D5W 50ML 50 ML IVPB SCH (21:53)
[2018-11-14] VITALS: BP 109/63
[2018-11-14 01:00] VITALS: BP 99/63
[2018-11-14 02:00] VITALS: BP 106/65
[2018-11-14] MEDS: oxyCODON/ACET (*)5/325MG (CII) 1 TAB TAB PO PRN ×3 (02:05→10:14)
[2018-11-14] MEDS: ceFAZolin(*) 2GM/D5W 50ML 50 ML IVPB SCH (05:00)
[2018-11-14] MEDS ORDERED: LEVOTHYROXINE SOD 0.1 MG TAB PO SCH (06:00)
[2018-11-14 07:29] VITALS: BP 110/67
[2018-11-14] MEDS ORDERED: OXYC-865 PO (08:52)
--- NOTE | 2018-11-14 09:58 | Hospitalist Progress Note ---
Subjective Progress Notes Subjective He was admitted s/p should replacement. He had no acute events overnight. He would like to go home today. Patient Complains of: Cardiovascular: No: Chest Pain Respiratory: No: Shortness of Breath Physical Exam Vital Signs Date Time Temp Pulse Resp B/P (MAP) Pulse Ox O2 Delivery O2 Flow Rate FiO2 11/14/18 07:30 92 11/14/18 07:30 Room Air 11/14/18 07:29 97.9 74 16 110/67 (81) 11/13/18 23:43 0.5 Intake and Output 11/14/18 01:00 Intake Total 600 ml Balance 600 ml Intake IV Total 600 ml # Voids 3 General Appearance: Alert, Awake, No Acute Distress, Afebrile Neuro: No Gross deficits Cardiovascular: Regular Rate and Rhythm Respiratory: No Respiratory Distress, Clear to Auscultation GI: Soft and Non-Tender Psych: Alert & Oriented X3, Appropriate Mood & Affect Result Diagram: 11/14/18 3422 Assessment and Plan Problems: (1) Status post replacement of right shoulder joint Status: Acute Assessment & Plan: Followed by Dr. Lockhart. (2) Hypothyroidism Status: Chronic Assessment & Plan: Continue chronic levothyroxine. (3) BPH (benign prostatic hyperplasia) Status: Chronic Assessment & Plan: Continue chronic Flomax and Finasteride. Exam Sepsis Risk: No Definite Risk KYM MOSQUEDAP November 14, 2018 09:58
[2018-11-14 12:02] VITALS: Ht 185.4 cm; Wt 83.9 kg
[2018-11-14] MEDS ORDERED: TAMSULOSIN HCL 0.4 MG CAP PO SCH (21:00)
== END 2018-11-14 10:52 | disposition home or self-care (01) | DRG 483 ==
LOC: OR 01:12 → MED 17:05 → OBSVTOIN 17:05
PROVIDERS: ADMIT Orthopaedic Surgery; ATTEND Orthopaedic Surgery
PROC: 0RRJ0JZ Replacement of Right Shoulder Joint with Synthetic Substitute, Open Approach (ICD-10-PCS; principal; 2018-11-13 12:50)
DX: M19.011 Primary osteoarthritis, right shoulder (principal); N40.0 Benign prostatic hyperplasia without lower urinary tract symptoms; F17.220 Nicotine dependence, chewing tobacco, uncomplicated; E03.9 Hypothyroidism, unspecified; Z79.82 Long term (current) use of aspirin
CPT/HCPCS: 36415; 85014; 85018; 85610; 86850; 86900; 86901; 97165; J0690; J1100; J2250; J2405; J2704; J2795; J3010; J7120